=== PATIENT | female | born 2000 | race Caucasian/White ===

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

== ENCOUNTER 2019-03-03 15:58 | Emergency (ER) | payer OTHER ==
[~2019-03-03] VITALS: Ht 175.3 cm; Wt 123.6 kg
[2019-03-03] MEDS ORDERED: KETOROLAC 30 MG/ML VIAL (J1885) IV ONE (17:00)
[2019-03-03] MEDS ORDERED: ONDANSETRON 4MG/2ML VIAL (J2405) IV ONE (17:00)
[2019-03-03] MEDS ORDERED: NS 1,000 ML IV ONE (17:00)
[2019-03-03 17:29] LABS: BASO # 0.1 10^3/uL (0.0-0.2); BASO % 0.7 % (0.0-1.0); EOS # 0.2 10^3/uL (0.0-0.50); EOS % 2.2 % (0.0-3.0); HEMATOCRIT 45.9 % (36.0-47.0); HEMOGLOBIN 15.9 g/dl (12.0-15.5); LYMPH # 2.7 10^3/uL (1.5-6.5); MEAN CORPUSCULAR HEMOGLOBIN 31.2 pg (27.0-33.0); MEAN CORPUSCULAR HGB CONC 34.6 g/dl (32.0-36.5); MEAN CORPUSCULAR VOLUME 90.2 fl (80.0-96.0); MONO # 0.8 10^3/uL (0.0-0.8); MONO % 8.8 % (0.0-5.0); NEUTROPHILS # 5.2 10^3/uL (1.8-7.7); PLATELET COUNT, AUTOMATED 286 10^3/uL (150-450); RED BLOOD COUNT 5.09 10^6/uL (4.00-5.40)
[2019-03-03] MEDS ORDERED: ISOVUE-370 76% 100ML VIAL (Q9967) As Ordered ONE (17:55)
[2019-03-03 17:58] LABS: ALBUMIN 4.6 GM/DL (3.2-5.2); BILIRUBIN,DIRECT 0.3 MG/DL (0.0-0.2); BILIRUBIN,TOTAL 1.1 MG/DL (0.2-1.0); TOTAL PROTEIN 8.4 GM/DL (6.4-8.2)
--- NOTE | 2019-03-03 18:28 | REPVR ---
EXAM: CT Abdomen and Pelvis With Contrast EXAM DATE/TIME: 03/03/2019 5:56 PM CLINICAL HISTORY: 18 years old, female; Abdominal pain; Generalized; Additional info: Right abd pain TECHNIQUE: Imaging protocol: Axial computed tomography images of the abdomen and pelvis with intravenous contrast. Radiation optimization: All CT scans at this facility use at least one of these dose optimization techniques: automated exposure control; mA and/or kV adjustment per patient size (includes targeted exams where dose is matched to clinical indication); or iterative reconstruction. Contrast material: ISOVUE 370; Contrast volume: 100 ml; Contrast route: IV; COMPARISON: CT ABD/PEL W/IV ORAL CONTRAS 05/20/2018 12:56 AM FINDINGS: Liver: There is a diffuse decrease in hepatic parenchymal density, consistent with fatty infiltration. Gallbladder and bile ducts: The gallbladder is incompletely distended. This is most likely related to incomplete fasting. Clinical correlation to exclude gallbladder pathology suggested. Pancreas: Normal. No ductal dilation. Spleen: Normal. No splenomegaly. Adrenals: Normal. No mass. Kidneys and ureters: Normal. No hydronephrosis. Stomach and bowel: Normal. No obstruction. No mucosal thickening. Appendix: Normal appendix. Intraperitoneal space: Normal. No free air. No significant fluid collection. Vasculature: Normal. No abdominal aortic aneurysm. Lymph nodes: Small ileocolic lymph nodes measure up to 5 mm. Bladder: Unremarkable as visualized. Reproductive: Unremarkable as visualized. Bones/joints: No acute fracture. No dislocation. Soft tissues: Unremarkable. IMPRESSION: 1. There is a diffuse decrease in hepatic parenchymal density, consistent with fatty infiltration. 2. The gallbladder is incompletely distended. This is most likely related to incomplete fasting. Clinical correlation to exclude gallbladder pathology suggested. 3. No acute findings. Electronically signed by: Jorge Patel On 03/03/2019 18:28:14 PM
[2019-03-03] MEDS ORDERED: OMEP40CA2 PO (18:38)
[2019-03-03 18:46] VITALS: BP 132/72
== END 2019-03-03 18:50 | disposition home or self-care (01) ==
LOC: M ED 15:58
DX: K21.9 Gastro-esophageal reflux disease without esophagitis (principal); K76.0 Fatty (change of) liver, not elsewhere classified; Z87.42 Personal history of other diseases of the female genital tract; F17.210 Nicotine dependence, cigarettes, uncomplicated; Z79.3 Long term (current) use of hormonal contraceptives
CPT/HCPCS: 36415; 74177; 80047; 80076; 81001; 83690; 84702; 85025; 96374; 96375; 99284; J1885; J2405; Q9967

== ENCOUNTER 2019-04-02 17:26 | Emergency (ER) | payer OTHER ==
[~2019-04-02] VITALS: Ht 172.7 cm; Wt 113.6 kg
[~2019-04-02 17:26] MED LIST: OMEP40CA2 PO
[2019-04-02 17:59] LABS: BASO % 0.5 % (0.0-1.0); EOS # 0.3 10^3/uL (0.0-0.5); EOS % 3.6 % (0.0-3.0); HEMATOCRIT 43.5 % (36.0-47.0); HEMOGLOBIN 14.8 g/dl (12.0-15.5); LYMPH # 2.5 10^3/uL (1.5-5.0); LYMPH % 32.1 % (24.0-44.0); MEAN CORPUSCULAR HEMOGLOBIN 30.1 pg (27.0-33.0); MEAN CORPUSCULAR VOLUME 88.6 fl (80.0-96.0); MONO # 0.6 10^3/uL (0.0-0.8); MONO % 8.3 % (0.0-5.0); NEUTROPHILS # 4.2 10^3/uL (1.5-8.5); NEUTROPHILS % 55.1 % (36.0-66.0); PLATELET COUNT, AUTOMATED 259 10^3/uL (150-450); RED BLOOD COUNT 4.91 10^6/uL (4.00-5.40); WHITE BLOOD COUNT 7.7 10^3/uL (4.0-10.0)
[2019-04-02 18:38] LABS: ALBUMIN 4.1 GM/DL (3.2-5.2); ALT/SGPT 25 U/L (12-78); BILIRUBIN,DIRECT 0.2 MG/DL (0.0-0.2); BILIRUBIN,TOTAL 0.9 MG/DL (0.2-1.0); BLOOD UREA NITROGEN 14 MG/DL (7-18); CALCIUM LEVEL 9.1 MG/DL (8.5-10.1); CARBON DIOXIDE LEVEL 28 MEQ/L (21-32); CHLORIDE LEVEL 107 MEQ/L (98-107); GLUCOSE, FASTING 86 MG/DL (70-100); LIPASE 194 U/L (73-393); POTASSIUM SERUM 3.9 MEQ/L (3.5-5.1); SODIUM LEVEL 141 MEQ/L (136-145); TOTAL PROTEIN 7.8 GM/DL (6.4-8.2)
[2019-04-02] MEDS ORDERED: metroNIDAZOLE (FLAGYL) 500 MG TAB PO ONE (19:15)
[2019-04-02] MEDS ORDERED: FLAG500T PO (19:17)
[2019-04-02 19:26] VITALS: BP 127/79
[2019-04-02] MEDS ORDERED: OMEP40CA2 PO (19:32)
[2019-04-02 20:17] LABS: CHLAMYDIA DNA AMPLIFICATION NEGATIVE (NEGATIVE); GC DNA AMPLIFICATION NEGATIVE (NEGATIVE)
== END 2019-04-02 19:37 | disposition home or self-care (01) ==
LOC: M ED 17:26
DX: N76.0 Acute vaginitis (principal); K21.9 Gastro-esophageal reflux disease without esophagitis; Z79.899 Other long term (current) drug therapy; F17.210 Nicotine dependence, cigarettes, uncomplicated

== ENCOUNTER 2019-07-29 13:46 | Emergency (ER) | payer OTHER ==
[~2019-07-29] VITALS: Ht 172.7 cm; Wt 130.8 kg
[~2019-07-29 13:46] MED LIST changes: +FLAG500T PO; -OMEP40CA2 PO; +OMEP40CA97 PO
[2019-07-29] MEDS ORDERED: AZEL1SPR3 (13:51)
[2019-07-29] MEDS ORDERED: ONDANSETRON 4MG/2ML VIAL (J2405) IV ONE (14:30)
[2019-07-29] MEDS ORDERED: NS 1,000 ML IV ONE (14:30)
[2019-07-29] MEDS ORDERED: KETOROLAC 30 MG/ML VIAL (J1885) IV ONE (14:30)
[2019-07-29 15:07] LABS: BASO % 0.3 % (0.0-1.0); EOS # 0.2 10^3/uL (0.0-0.5); EOS % 1.5 % (0.0-3.0); HEMATOCRIT 46.9 % (36.0-47.0); HEMOGLOBIN 15.7 g/dl (12.0-15.5); LYMPH # 2.1 10^3/uL (1.5-5.0); LYMPH % 17.4 % (24.0-44.0); MEAN CORPUSCULAR HEMOGLOBIN 29.7 pg (27.0-33.0); MEAN CORPUSCULAR HGB CONC 33.5 g/dl (32.0-36.5); MEAN CORPUSCULAR VOLUME 88.8 fl (80.0-96.0); MONO % 8.5 % (0.0-5.0); NEUTROPHILS # 8.8 10^3/uL (1.5-8.5); NEUTROPHILS % 71.7 % (36.0-66.0); PLATELET COUNT, AUTOMATED 284 10^3/uL (150-450); RED BLOOD COUNT 5.28 10^6/uL (4.00-5.40); WHITE BLOOD COUNT 12.2 10^3/uL (4.0-10.0)
[2019-07-29] MEDS ORDERED: ISOVUE-370 76% 100ML VIAL (Q9967) As Ordered ONE (15:22)
[2019-07-29 15:32] LABS: ALBUMIN 4.4 GM/DL (3.2-5.2); BILIRUBIN,DIRECT 0.3 MG/DL (0.0-0.2); BILIRUBIN,TOTAL 1.5 MG/DL (0.2-1.0); TOTAL PROTEIN 8.1 GM/DL (6.4-8.2)
--- NOTE | 2019-07-29 16:49 | REP ---
CT abdomen and pelvis with IV but without oral contrast: History: Periumbilical pain. Comparison study: March 03, 2019. CT contrast dose: 100 ml of intravenous Isovue 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 The lung bases are clear on axial CT images. The liver and the spleen are normal in size homogeneous in texture. No abnormalities noted in the pancreas or the gallbladder. Normal adrenals are seen bilaterally. The kidneys enhance symmetrically and are morphologically intact. No cyst, mass or hydronephrosis is seen. No calculus is observed. No retroperitoneal mass or adenopathy is seen. Normal caliber aorta. There is a tiny amount of fluid in the cul-de-sac likely physiologic. No ovarian lesion is seen on either side. A normal appendix is noted in the right lower quadrant. Small and large bowel loops are unremarkable. No abdominal wall defect is seen. Impression: Negative CT study abdomen and pelvis. No significant abnormality noted. Normal appendix. Electronically Signed by Zachary Asher MD 07/29/2019 06:18 P
--- NOTE | 2019-07-29 17:31 | REPVR ---
PROCEDURE INFORMATION: Exam: US Abdomen Limited, Right Upper Quadrant Exam date and time: 07/29/2019 5:25 PM Age: 19 years old Clinical indication: Abdominal pain; Flank; Right upper quadrant (ruq); Additional info: Abd pain/inc bili TECHNIQUE: Imaging protocol: Real-time ultrasound of the abdomen with image documentation. Examination was focused on the right upper quadrant. COMPARISON: CT ABD/PEL W/IV CONTRAST ONLY 07/29/2019 3:28 PM FINDINGS: Liver: Normal. No masses. Gallbladder: Normal. No gallstones. There is no gallbladder wall thickening. Common bile duct: The common bile duct measures 3.9 mm. No mass or choledocholithiasis. Pancreas: Visualized pancreas is unremarkable. Right kidney: Right kidney measures 13.1 x 4.8 x 5.6 cm. IMPRESSION: Normal evaluation of the gallbladder and biliary tree. Electronically signed by: Jorge Patel On 07/29/2019 17:31:28 PM
[2019-07-29] MEDS ORDERED: ONDA4TAB6 PO (17:54)
[2019-07-29 18:02] VITALS: BP 116/58
== END 2019-07-29 18:25 | disposition home or self-care (01) ==
LOC: M ED 13:46
DX: A08.2 Adenoviral enteritis (principal); R19.7 Diarrhea, unspecified; K21.9 Gastro-esophageal reflux disease without esophagitis; F17.290 Nicotine dependence, other tobacco product, uncomplicated
CPT/HCPCS: 36415; 74177; 76705; 80047; 80076; 81001; 83690; 84702; 85025; 87507; 96361; 96374; 96375; 99284; J1885; J2405; Q9967

== ENCOUNTER 2019-08-08 23:58 | Emergency (ER) | payer OTHER ==
[~2019-08-08] VITALS: Ht 172.7 cm; Wt 132.4 kg
[~2019-08-08 23:58] MED LIST changes: +AZEL1SPR3; +ONDA4TAB6 PO
[2019-08-09] MEDS ORDERED: PRED20TA PO (03:38)
[2019-08-09] MEDS ORDERED: predniSONE 20 MG TAB PO ONE (03:45)
[2019-08-09 03:58] VITALS: BP 132/85
== END 2019-08-09 03:59 | disposition home or self-care (01) ==
LOC: M ED 23:58
DX: R21 Rash and other nonspecific skin eruption (principal); W57.XXXA Bitten or stung by nonvenomous insect and other nonvenomous arthropods, initial encounter; Y92.008 Other place in unspecified non-institutional (private) residence as the place of occurrence of the external cause; F17.210 Nicotine dependence, cigarettes, uncomplicated

== ENCOUNTER → 2019-11-13 | Outpatient (CLI) | payer OTHER ==
[~2019-11-13] MED LIST changes: +PRED20TA PO
[2019-11-13 10:16] LABS: HEMATOCRIT 42.9 % (36.0-47.0); HEMOGLOBIN 14.5 g/dl (12.0-15.5); MEAN CORPUSCULAR HEMOGLOBIN 29.8 pg (27.0-33.0); MEAN CORPUSCULAR HGB CONC 33.8 g/dl (32.0-36.5); MEAN CORPUSCULAR VOLUME 88.1 fl (80.0-96.0); PLATELET COUNT, AUTOMATED 247 10^3/uL (150-450); RED BLOOD COUNT 4.87 10^6/uL (4.00-5.40); WHITE BLOOD COUNT 5.8 10^3/uL (4.0-10.0)
[2019-11-13 10:51] LABS: HCG, SERUM QUALITATIVE NEGATIVE (NEGATIVE)
[2019-11-13 10:59] LABS: PROLACTIN 16.9 NG/ML
[2019-11-20 00:06] LABS: 17 HYDROXY PROGESTERONE 127 ng/dL (.); INSULIN FREE 16 uU/mL (.); INSULIN TOTAL2 16 uU/mL (.); TESTOSTERONE FREE (DIRECT) 5.5 pg/mL (0.0-4.2)
== END ==
LOC: M LAB 09:19
PROVIDERS: ATTEND Advanced Practice Midwife
DX: N91.1 Secondary amenorrhea (principal)

== ENCOUNTER 2019-12-27 07:59 | Emergency (ER) | payer MEDICAID, OTHER ==
[~2019-12-27] VITALS: Ht 172.7 cm; Wt 133.7 kg
[2019-12-27] MEDS ORDERED: METF750T36 (08:10)
[2019-12-27 08:58] LABS: BASO % 0.6 % (0.0-1.0); EOS # 0.1 10^3/uL (0.0-0.5); EOS % 2.5 % (0.0-3.0); HEMATOCRIT 40.4 % (36.0-47.0); HEMOGLOBIN 13.7 g/dl (12.0-15.5); LYMPH # 1.6 10^3/uL (1.5-5.0); LYMPH % 30.8 % (24.0-44.0); MEAN CORPUSCULAR HEMOGLOBIN 29.9 pg (27.0-33.0); MEAN CORPUSCULAR HGB CONC 33.9 g/dl (32.0-36.5); MEAN CORPUSCULAR VOLUME 88.2 fl (80.0-96.0); MONO # 0.6 10^3/uL (0.0-0.8); MONO % 10.9 % (0.0-5.0); NEUTROPHILS # 2.9 10^3/uL (1.5-8.5); PLATELET COUNT, AUTOMATED 263 10^3/uL (150-450); RED BLOOD COUNT 4.58 10^6/uL (4.00-5.40); WHITE BLOOD COUNT 5.2 10^3/uL (4.0-10.0)
[2019-12-27 09:36] LABS: ALBUMIN 4.1 GM/DL (3.2-5.2); BILIRUBIN,DIRECT 0.3 MG/DL (0.0-0.2); BILIRUBIN,TOTAL 1.4 MG/DL (0.2-1.0); TOTAL PROTEIN 7.6 GM/DL (6.4-8.2)
[2019-12-27 11:30] VITALS: BP 123/72
--- NOTE | 2019-12-27 11:35 | REPVR ---
PROCEDURE INFORMATION: Exam: US Duplex Artery or Vein of the Abdominal and/or Reproductive Organs, Limited Exam date and time: 12/27/2019 10:45 AM Age: 19 years old Clinical indication: complicated by abdominal or pelvic pain; Lower; First trimester; last menstrual period 11/17/2019; ; Additional info: Low abd pain, positive beta hCG 1126 TECHNIQUE: Imaging protocol: Real-time duplex ultrasound scan of the arterial or venous flow of the abdomen and/or reproductive organs, with color Doppler flow and spectral waveform analysis with image documentation. Exam focused on the region of clinical interest. Duplex images were received to evaluate vascular conditions. COMPARISON: US PELVIC NON-OB COMPLETE 05/19/2018 11:38:40 PM FINDINGS: Ovaries: The right ovary demonstrates color Doppler blood flow. The right ovary demonstrates spectral Doppler blood flow with low resistance arterial waveform. The left ovary demonstrates color Doppler blood flow. The left ovary demonstrates spectral Doppler blood flow with low resistance arterial waveform. IMPRESSION: 1. The bilateral ovaries demonstrate blood flow. 2. Please see the contemporaneously performed US First Trimester, Transabdominal and US , Transvaginal report for additional findings. PROCEDURE INFORMATION: Exam: US First Trimester, Transabdominal and US , Transvaginal Exam date and time: 12/27/2019 10:45 AM Age: 19 years old Clinical indication: complicated by abdominal or pelvic pain; Lower; First trimester; last menstrual period 11/17/2019; ; Additional info: Low abd pain, positive beta hCG 1126 TECHNIQUE: Imaging protocol: Real-time transabdominal obstetrical ultrasound of the maternal pelvis and a first trimester , less than 14 weeks 0 days, with image documentation. Transvaginal imaging was used for better evaluation of the fetus and adnexa. COMPARISON: US PELVIC NON-OB COMPLETE 05/19/2018 11:38:40 PM FINDINGS: Gestation: A rounded anechoic fluid collection present within the uterine body endometrium is present and compatible with a gestational sac. No definitive yolk sac or pole is identified within the gestational sac. Mean gestational sac diameter = 0.32 cm BIOMETRY: Estimated gestational age: Estimated gestational age (based on mean gestational sac diameter) = 4 weeks 6 days MATERNAL: Uterus: Unremarkable. Cervix: Unremarkable. Right adnexa: The right ovary measures 4 x 2.6 x 3.3 cm. The right ovary contains a 1.7 x 1.3 x 1.4 cm thick walled centrally anechoic cyst consistent with a corpus luteum. No evidence of right ovarian torsion. Left adnexa: The left ovary measures 3.3 x 1.8 x 2.1 cm. No mass. No evidence of left ovarian torsion. Intraperitoneal space: No free intraperitoneal fluid. IMPRESSION: Findings consistent with early intrauterine of uncertain viability. Short-term follow-up ultrasound is recommended to assess for development of a viable pole. Electronically signed by: Mat Romano On 12/27/2019 11:34:29 AM
== END 2019-12-27 12:44 | disposition home or self-care (01) ==
LOC: M ED 07:59
DX: O26.611 Liver and biliary tract disorders in pregnancy, first trimester (principal); O99.331 Smoking (tobacco) complicating pregnancy, first trimester; Z3A.01 Less than 8 weeks gestation of pregnancy; Z79.84 Long term (current) use of oral hypoglycemic drugs

== ENCOUNTER 2019-12-29 02:14 | Emergency (ER) | payer OTHER ==
[~2019-12-29] VITALS: Ht 172.7 cm; Wt 113.6 kg
[~2019-12-29 02:14] MED LIST changes: +METF750T36
[2019-12-29 02:25] VITALS: BP 138/89
[2019-12-29] MEDS ORDERED: METOCLOPRAMIDE 10 MG TAB PO ONE (03:00)
[2019-12-29] MEDS ORDERED: REGL10TA6 PO (04:20)
== END 2019-12-29 04:28 | disposition home or self-care (01) ==
LOC: M ED 02:14
DX: O21.8 Other vomiting complicating pregnancy (principal); O99.331 Smoking (tobacco) complicating pregnancy, first trimester; Z3A.00 Weeks of gestation of pregnancy not specified

== ENCOUNTER → 2020-01-19 | Outpatient (REF) | payer OTHER, MEDICAID ==
[~2020-01-19] MED LIST changes: +REGL10TA6 PO
[2020-01-19 17:46] LABS: HEMATOCRIT 41.1 % (36.0-47.0); HEMOGLOBIN 13.8 g/dl (12.0-15.5); MEAN CORPUSCULAR HEMOGLOBIN 29.9 pg (27.0-33.0); MEAN CORPUSCULAR HGB CONC 33.6 g/dl (32.0-36.5); MEAN CORPUSCULAR VOLUME 89.2 fl (80.0-96.0); PLATELET COUNT, AUTOMATED 252 10^3/uL (150-450); RED BLOOD COUNT 4.61 10^6/uL (4.00-5.40); WHITE BLOOD COUNT 8.9 10^3/uL (4.0-10.0)
[2020-01-19 19:40] LABS: CHLAMYDIA DNA AMPLIFICATION NEGATIVE (NEGATIVE); GC DNA AMPLIFICATION NEGATIVE (NEGATIVE)
[2020-01-20 10:38] LABS: HEPATITIS C VIRUS ABY INDEX 0.1 INDEX (<0.8); HIV 1&2 SCREEN CENTAUR NEGATIVE (NEGATIVE)
== END ==
LOC: M PLALAB 13:42
PROVIDERS: ATTEND Advanced Practice Midwife
DX: Z34.03 Encounter for supervision of normal first pregnancy, third trimester (principal)